=== PATIENT | female | born 1950 | race Caucasian/White ===

== ENCOUNTER 2018-05-10 11:31 | Day surgery (SDC) | payer MEDICARE ==
[~2018-05-10] VITALS: Ht 175.3 cm; Wt 105.8 kg
[2018-05-10] VITALS (9 sets, daily range): BP systolic 122–162; BP diastolic 53–86
[~2018-05-10 11:31] MED LIST: ACET-3068 PO
[2018-05-10] MEDS ORDERED: diphenhydrAMINE 25mg capsule PO ONE (12:00)
[2018-05-10] MEDS ORDERED: normal saline 1000ml 1,000 ML IV SCH (12:00)
[2018-05-10] MEDS ORDERED: LORazepam 0.5 MG tablet PO ONE (12:00)
[2018-05-10] MEDS ORDERED: METO25TA6 PO (12:06)
[2018-05-10] MEDS ORDERED: NITR0.4T51 SL (12:06)
[2018-05-10] MEDS ORDERED: MULT-1085 PO (12:06)
[2018-05-10] MEDS ORDERED: ASPI-1265 PO (12:06)
[2018-05-10] MEDS ORDERED: OMEG1CAP2 (12:06)
[2018-05-10] MEDS ORDERED: ATOR40TA PO (12:06)
[2018-05-10] MEDS ORDERED: TURM1POW2 (12:06)
[2018-05-10] MEDS ORDERED: midazolam 2 mg/2 ml injection ONE (13:09)
[2018-05-10] MEDS ORDERED: iohexol 350MG/ML 100ml bottle IV ONE (13:09)
[2018-05-10] MEDS ORDERED: fentaNYL/PF 50MCG/1 ML 2ML syringe ONE (13:09)
[2018-05-10] MEDS ORDERED: lidocaine 1%/epinephrine 1:100,000 injection 50ml vial ONE (13:09)
[2018-05-10] MEDS ORDERED: metoprolol tartrate 1mg/ml inj IV ONE (13:46)
[2018-05-10] MEDS ORDERED: hydrALAZINE 20mg/ml inj. IV ONE (13:54)
[2018-05-10] MEDS ORDERED: OXAZEpam 15mg capsule PO PRN (14:40)
[2018-05-10] MEDS ORDERED: proCHLORperazine 10 MG/2 ml inj IV PRN (14:40)
[2018-05-10] MEDS ORDERED: HYDROcodone/acetaminophen 10/325mg tab PO PRN (14:40)
[2018-05-10] MEDS ORDERED: ondansetron/PF 4mg/2ml inj IV PRN (14:40)
[2018-05-10] MEDS ORDERED: HYDROcodone/acetaminophen 5mg/325mg tablet PO PRN (14:40)
[2018-05-10] MEDS ORDERED: nitroGLYCERIN 0.4mg SUBLingual tab SL PRN (14:40)
== END 2018-05-10 19:15 | disposition home or self-care (01) ==
LOC: SSTAY O 11:31
PROVIDERS: ATTEND Internal Medicine Interventional Cardiology
DX: I25.118 Atherosclerotic heart disease of native coronary artery with other forms of angina pectoris (principal); I10 Essential (primary) hypertension; E78.5 Hyperlipidemia, unspecified; F41.8 Other specified anxiety disorders; Z90.710 Acquired absence of both cervix and uterus; Z79.82 Long term (current) use of aspirin; Z87.891 Personal history of nicotine dependence; Z88.5 Allergy status to narcotic agent; Z88.2 Allergy status to sulfonamides; Z88.6 Allergy status to analgesic agent; Z87.01 Personal history of pneumonia (recurrent); Z90.49 Acquired absence of other specified parts of digestive tract; Z96.651 Presence of right artificial knee joint; Z79.899 Other long term (current) drug therapy; Z98.890 Other specified postprocedural states; Z82.49 Family history of ischemic heart disease and other diseases of the circulatory system; Z83.6 Family history of other diseases of the respiratory system; Z81.1 Family history of alcohol abuse and dependence
CPT/HCPCS: 93005; 93458; 99152; 99153; A6257; C1769; J0360; J1644; J2250; J3010; J3490; J7030; Q0163; Q9967

== ENCOUNTER 2022-07-18 13:37 | Emergency (ER) | payer MEDICARE ==
[~2022-07-18] VITALS: Ht 175.3 cm; Wt 97.3 kg
[~2022-07-18 13:37] MED LIST changes: -ACET-3068 PO; +ASPI-1265 PO; +ATOR40TA PO; +LOP25T PO; +MULT-1085 PO; +NITR0.4T51 SL; +OMEG1CAP2; +TURM1POW2
[2022-07-18 14:26] VITALS: BP 154/73
[2022-07-18] MEDS ORDERED: LIDOcaine 1% 30ml preserv. free vial IJ ONE (16:15)
== END 2022-07-18 17:11 | disposition home or self-care (01) ==
LOC: ER 13:38
DX: S92.532A Displaced fracture of distal phalanx of left lesser toe(s), initial encounter for closed fracture (principal); Z88.2 Allergy status to sulfonamides; Z88.6 Allergy status to analgesic agent; Z79.899 Other long term (current) drug therapy; W22.8XXA Striking against or struck by other objects, initial encounter; Y93.89 Activity, other specified; Y92.89 Other specified places as the place of occurrence of the external cause; Y99.8 Other external cause status
CPT/HCPCS: 28515; 73630; 73660; 99284

== ENCOUNTER 2023-01-29 08:53 | Day surgery (SDC) | payer MEDICARE ==
[2023-01-22 16:22] LABS: BASOPHILS # (AUTO) 0.1 X10'3 (0-0.2); BASOPHILS % (AUTO) 0.8 % (0-1); EOSINOPHILS # (AUTO) 0.2 X10'3 (0-0.9); EOSINOPHILS % (AUTO) 2.2 % (0-6); LYMPHOCYTES # (AUTO) 2.3 X10'3 (1.1-4.8); LYMPHOCYTES % (AUTO) 23.6 % (21-51); MEAN CORPUSCULAR HEMOGLOBIN 30.7 PG (27.0-31.0); MEAN CORPUSCULAR HGB CONC 33.3 g/dL (33.0-36.5); MEAN CORPUSCULAR VOLUME 92.1 FL (78-98); MEAN PLATELET VOLUME 8.7 FL (7.4-10.4); MONOCYTES # (AUTO) 0.6 X10'3 (0-0.9); MONOCYTES % (AUTO) 6.5 % (2-12); NEUTROPHILS # (AUTO) 6.4 X10'3 (1.8-7.7); NEUTROPHILS % (AUTO) 66.9 % (42-75); PRE OP HEMATOCRIT 39.2 % (35.0-45.0); PRE OP HEMOGLOBIN 13.1 g/dL (12.0-16.0); PRE OP PLATELET COUNT 249 X10'3 (140-440); RED BLOOD COUNT 4.26 X10'6 (4.20-5.60); RED CELL DISTRIBUTION WIDTH 13.1 % (11.5-14.5)
[2023-01-22 16:34] LABS: ALBUMIN 3.9 G/DL (3.4-5.0); ALBUMIN/GLOBULIN RATIO 1.1 (1.1-1.5); ALKALINE PHOSPHATASE 70 IU/L (46-116); BLOOD UREA NITROGEN 18 MG/DL (7-18); BUN/CREATININE RATIO 24.7 (10.0-20.0); CALCIUM 9.1 MG/DL (8.5-10.1); CHLORIDE 103 MMOL/L (99-107); CREATININE 0.73 MG/DL (0.40-0.90); PRE OP ALT 22 U/L (30-65); PRE OP ANION GAP 6 (8-16); PRE OP AST 13 U/L (10-37); PRE OP BILIRUB, TOTAL 0.3 MG/DL (0.0-1.0); PRE OP GLUCOSE 109 MG/DL (70-104); PRE OP POTASSIUM 3.8 MMOL/L (3.4-5.1); PRE OP SODIUM 138 MMOL/L (135-145); TOTAL CARBON DIOXIDE 29.4 MMOL/L (24-32); TOTAL PROTEIN 7.3 G/DL (6.4-8.2); eGFR 78 ML/MIN
[~2023-01-29] VITALS: Ht 176.5 cm; Wt 105.5 kg
[~2023-01-29 08:53] MED LIST changes: -ASPI-1265 PO; -ATOR40TA PO; -LOP25T PO; -MULT-1085 PO; -NITR0.4T51 SL; -OMEG1CAP2; +SIMV-45 PO; -TURM1POW2; +cefazolin 2gm/D5W 100mL 100 ML IV ONE; +famotidine 20mg tablet PO ONE; +ringers solution, lacted 500 ML IV SCH
[2023-01-29] MEDS ORDERED: morphine 2 MG/ML inj. syringe IV PRN (09:25)
[2023-01-29] MEDS ORDERED: ondansetron/PF 4mg/2ml inj IV PRN (09:25)
[2023-01-29] MEDS ORDERED: labetalol 20mg/4ml (5mg/ml) syringe IV PRN (09:25)
[2023-01-29] MEDS ORDERED: morphine 4 MG/ML inj SYRINge IV PRN (09:25)
[2023-01-29] MEDS ORDERED: ringers solution, lacted 1,000 ML IV SCH (09:25)
[2023-01-29 09:45] VITALS: BP 142/76
[2023-01-29] MEDS ORDERED: fentaNYL/PF 50MCG/1 ML 2ML syringe ONE (13:02)
[2023-01-29] MEDS ORDERED: midazolam 1 mg/ML 2ml injection ONE (13:02)
[2023-01-29] MEDS ORDERED: labetalol 20mg/4ml (5mg/ml) syringe IV ONE (13:23)
[2023-01-29] MEDS ORDERED: LIDOcaine 0.5% (5mg/ml) 50ml vial ONE (13:24)
[2023-01-29] MEDS ORDERED: BUPIVAcaine/PF 2.5mg/ml (0.25%) 10ml vial IJ ONE (13:27)
[2023-01-29 13:33] VITALS: BP 125/62
--- NOTE | 2023-01-29 13:33 | NUR ---
Received from OR via [facility], accompanied by Anesthesiologist DR. VILLEDA and report given by Anesthesiolgist. 20G PIV TO LEFT AC WITH LR RUNNING. DENIES PAIN. CSM INTACT, NUMB TO FINGERS, COMFORTABLE. VSS. RA. DRESSING TO RIGHT WRIST CDI. ICE APPLIED.
[2023-01-29 13:43] VITALS: BP 123/54
[2023-01-29 13:53] VITALS: BP 138/65
[2023-01-29 14:03] VITALS: BP 140/63
== END 2023-01-29 14:03 | disposition home or self-care (01) ==
LOC: PAS 08:53
PROVIDERS: ATTEND Orthopaedic Surgery Hand Surgery
DX: G56.01 Carpal tunnel syndrome, right upper limb (principal); I12.9 Hypertensive chronic kidney disease with stage 1 through stage 4 chronic kidney disease, or unspecified chronic kidney disease; N18.9 Chronic kidney disease, unspecified; E78.5 Hyperlipidemia, unspecified; Z88.2 Allergy status to sulfonamides; Z88.1 Allergy status to other antibiotic agents; Z79.899 Other long term (current) drug therapy; Z96.651 Presence of right artificial knee joint; Z87.891 Personal history of nicotine dependence; Z98.890 Other specified postprocedural states; Z90.710 Acquired absence of both cervix and uterus; Z90.49 Acquired absence of other specified parts of digestive tract; Z82.49 Family history of ischemic heart disease and other diseases of the circulatory system
CPT/HCPCS: 36415; 64721; 80053; 82948; 85025; A6222; J0690; J2250; J3010; J3490; J7030; J7120; Z7506; Z7512; A4215